=== PATIENT | male | born 1995 | race Caucasian/White ===

== ENCOUNTER 2016-04-07 22:50 | Emergency (ER) | payer OTHER ==
[~2016-04-07] VITALS: Ht 175.3 cm; Wt 92.0 kg
[2016-04-07 22:59] VITALS: TEMP 37.5; Ht 175.3 cm; Wt 92.0 kg
[2016-04-07] MEDS ORDERED: PROPARACAINE HCL 0.5% OP SOLN 15 ML BTL OP STA (23:48)
[2016-04-08] MEDS ORDERED: NORCO 5/325MG HOME PACK PO ONE
[2016-04-08] MEDS ORDERED: CEPHALEXIN 500MG HOME PACK 1 EA BTL PO ONE
[2016-04-08] MEDS ORDERED: SEPTRA DS HOME PACK 1 EA VIAL PO ONE
[2016-04-08] MEDS ORDERED: SULF800T23 PO (00:51)
[2016-04-08] MEDS ORDERED: HYDR-5688 PO (00:51)
[2016-04-08] MEDS ORDERED: CEPH500C PO (00:51)
--- NOTE | 2016-04-08 00:53 | EMERGENCY ROOM VISIT NOTE ---
ED Visit Note First contact with patient: 23:17 Chief Complaint: Pilonidal Cyst History of Present Illness: Patient is a 20-year-old male who presents to the emergency department today for a possible pilonidal cyst. He reports a history of the same back in January. He had a surgery performed in [place] to remove the cyst. He had been doing well until yesterday he noticed some pain and irritation to the upper portion of his buttocks. He denies any discharge or drainage. He reports no fevers or chills. He denies any history of Crohn's disease or ulcerative colitis. The patient rates his current discomfort as a 2/ 10. He denies any fevers, chills, nausea, vomiting, diarrhea, hematochezia, melena, hematuria, or dysuria. Medications: No current medications. Allergies: No known allergies. PMH: As above. SHx: Patient is a 20-year-old male who lives locally. ROS: All pertinent positive and negative review of systems are appropriately documented in the History of Present Illness. Physical Exam: VITAL SIGNS - Vital signs and nursing notes were reviewed. GENERAL - 20-year-old male appearing male appearing his stated age who is in no acute distress. Communicates well with provider and answers questions appropriately. ABDOMEN - Abdominal contour flat and without pulsations or visible masses. BS normoactive all four quadrants. No tenderness to palpation appreciated throughout. No palpable masses, hepatosplenomegaly, or ascites noted. RECTAL - No rectal fissures. No skin tags appreciate. No active bleeding. Healing residual wound in the upper portion of the gluteal cleft consistent with prior pilonidal drainage. Tender to palpation. No erythema or warmth to touch. No discharge or drainage noted. PSYCH - A&Ox3 and cooperates fully with examiner. Pt is very pleasant and interacts well with examiner. ED Course: Patient was seen and evaluated by myself. I had a lengthy discussion with the patient regarding his symptoms and management at this point. There is no active drainage or drainable abscess appreciated at this point. Patient will be placed on antibiotics to prevent the development of abscess. He is provided pain medication for home. He was instructed to follow-up with his surgeon from today's visit. He was educated on worrisome symptoms for return visit to the emergency department. Patient discharged home in good condition. In the evaluation and treatment of this patient, the following differential diagnoses were considered: Pilonidal abscess, pilonidal sialitis, pararectal abscess, fistula, amongst others. Impression: Pilonidal Cellulitis Discharge Instructions: You have been seen in the emergency department for a pilonidal cellulitis. You have been prescribed Crozier to be used for pain control. This is a narcotic medication. You cannot drive or consume alcohol while on this medicine. This medicine should only be used for pain that cannot be controlled with over-the- counter pain medicines. You were prescribed Keflex and Bactrim to be taken as prescribed. Both of these medications are antibiotics. Stop these medications and contact a medical provider if you were to develop any significant adverse side effects including: wheezing, shortness of breath, passing out, vomiting, or a diffuse rash. Always take antibiotics as directed and COMPLETE the ENTIRE course regardless of the improvement of your symptoms. Look for signs of infection of the wound including: increased pain, swelling, foul discharge, streaking, or increased temperature. If any of these are noticed you should return to the Emergency Department for further assessment and treatment. As with any laceration you may have received nerve damage to the surrounding tissues. This damage may or may not be permanent. For pain control, you can use the following juuy-dro-grsukee medicines (if >12 yo): - Regular strength (325mg/tab) Tylenol (acetaminophen) 2 tabs every 4-6 hours as needed. Do not exceed 12 tablets in a 24 hour period. Avoid taking more than 4 grams (4000 mg) of Tylenol per day. This includes any other sources of acetaminophen you may take on a regular basis. - Regular strength (200 mg/tab) Advil (ibuprofen) 1-2 tabs every 4-6 hours as needed. Do not exceed a dose of 3200 mg per day. Return to the emergency department if your symptoms worsen despite treatment course outlined above. Current/Historical Medications Scheduled Cephalexin Monohydrate (Keflex), 500 MG PO TID Sulfa/Trimethoprim (Bactrim Ds 800MG/160MG), 1 TAB PO BID Scheduled PRN Hydrocodone/Acetaminophen 5MG/325MG (Crozier 5MG/325MG), 1-2 TABLET PO Q4H PRN for Pain Allergies Coded Allergies: No Known Allergies (Unverified , 04/07/16) Vital Signs Date Time Temp Pulse Resp B/P Pulse Ox O2 Delivery O2 Flow Rate FiO2 04/08/16 01:05 89 18 116/77 98 04/07/16 22:59 37.5 98 18 137/84 96 Room Air Medications Administered Medications (Trade) Dose Ordered Sig/Jazz Route Start Time Stop Time Status Last Admin Dose Admin Cephalexin Monohydrate (Keflex 500MG Home Pack) 1 homepack NOW ONCE PO 04/08/16 00:00 04/08/16 00:01 DC 04/08/16 00:03 1 HOMEPACK Trimethoprim/ Sulfamethoxazole (Sulfameth/ Trimeth Ds 800/ 160MG Home Pack) 1 homepack UD ONCE PO 04/08/16 00:00 04/08/16 00:01 DC 04/08/16 00:02 1 HOMEPACK Acetaminophen/ Hydrocodone Bitart (Crozier 5/325mg Home Pack) 1 homepack UD ONCE PO 04/08/16 00:00 04/08/16 00:01 DC 04/08/16 00:03 1 HOMEPACK Departure Information Impression Primary Impression: Pilonidal abscess Dispostion Home / Self-Care Condition GOOD Prescriptions Hydrocodone/Acetaminophen 5MG/325MG (Crozier 5MG/325MG) Tab 1-2 TABLET PO Q4H Y for Pain, #20 TAB For Initial Treatment Prov: Juan Pablo Cheema PA-C 04/08/16 Sulfa/Trimethoprim (Bactrim Ds 800MG/160MG) Tab 1 TAB PO BID for 10 Days, #20 TAB Prov: Juan Pablo Cheema PA-C 04/08/16 Cephalexin Monohydrate (Keflex) 500 Mg Cap 500 MG PO TID for 10 Days, #30 CAP Prov: Juan Pablo Cheema PA-C 04/08/16 [facility] (PCP) Julisa Thornton MD Patient Instructions My [facility] Additional Instructions You have been seen in the emergency department for a pilonidal cellulitis. You have been prescribed Crozier to be used for pain control. This is a narcotic medication. You cannot drive or consume alcohol while on this medicine. This medicine should only be used for pain that cannot be controlled with over-the- counter pain medicines. You were prescribed Keflex and Bactrim to be taken as prescribed. Both of these medications are antibiotics. Stop these medications and contact a medical provider if you were to develop any significant adverse side effects including: wheezing, shortness of breath, passing out, vomiting, or a diffuse rash. Always take antibiotics as directed and COMPLETE the ENTIRE course regardless of the improvement of your symptoms. Look for signs of infection of the wound including: increased pain, swelling, foul discharge, streaking, or increased temperature. If any of these are noticed you should return to the Emergency Department for further assessment and treatment. As with any laceration you may have received nerve damage to the surrounding tissues. This damage may or may not be permanent. For pain control, you can use the following lrac-dwz-ibmqccm medicines (if >12 yo): - Regular strength (325mg/tab) Tylenol (acetaminophen) 2 tabs every 4-6 hours as needed. Do not exceed 12 tablets in a 24 hour period. Avoid taking more than 4 grams (4000 mg) of Tylenol per day. This includes any other sources of acetaminophen you may take on a regular basis. - Regular strength (200 mg/tab) Advil (ibuprofen) 1-2 tabs every 4-6 hours as needed. Do not exceed a dose of 3200 mg per day. Return to the emergency department if your symptoms worsen despite treatment course outlined above.
[2016-04-08 01:05] VITALS: BP 116/77; PULSE 89; O2SAT 98
== END 2016-04-08 01:06 | disposition home or self-care (01) ==
LOC: C.EDB 22:52 → C.EDC 04-08 01:06
DX: L05.01 Pilonidal cyst with abscess (principal)

== ENCOUNTER 2017-07-03 02:24 | Emergency (ER) | payer OTHER ==
[~2017-07-03] VITALS: Ht 180.3 cm; Wt 103.2 kg
[2017-07-03 02:31] VITALS: TEMP 36.8; Ht 180.3 cm; Wt 103.2 kg
[2017-07-03] MEDS ORDERED: ALBUT/IPRATROP 3MG/0.5MG NEB 3 ML VIAL INH ONE (03:00)
[2017-07-03] MEDS ORDERED: PRED20TA2 PO (03:39)
[2017-07-03 03:45] VITALS: BP 128/80; PULSE 85; O2SAT 95
--- NOTE | 2017-07-03 06:48 | DIAGNOSTIC IMAGING REPORT ---
CHEST 2 VIEWS ROUTINE CLINICAL HISTORY: Cough. COMPARISON STUDY: No previous studies for comparison. FINDINGS: Lung volumes are at the lower limits of normal. There is no consolidation or evidence for pulmonary edema. Cardiac size is normal. Mediastinal contours are unremarkable. There is no pneumothorax or pleural effusion. IMPRESSION: No acute cardiopulmonary findings. Electronically signed by: Yohan Meraz M.D. 07/03/2017 6:47 AM Dictated Date/Time: 07/03/2017 6:46 AM
--- NOTE | 2017-07-03 07:35 | EMERGENCY ROOM VISIT NOTE ---
History First contact with patient: 02:40 Chief Complaint: RESPIRATORY PROBLEMS Stated Complaint: TROUBLE BREATHING, CONSTANT SNEEZING, ITCHY EYES History of Present Illness The patient is a 22 year old male who presents to the Emergency Room with complaints of coughing, sneezing, and irritation of his eyes. Patient states he was sleeping tonight and had a hard time catching his breath. He has had symptoms like this in the past around this time of year and may be related to seasonal allergies. The patient has not had fever or chills. He does not have distinct chest pain or abdominal pain. No extremity swelling. He has not taken anything faom-ehk-aashzrs for his symptoms. He rates his discomfort a 5/ 10. Review of Systems More than 10 systems were reviewed and otherwise negative with the exception of history of present illness. Past Medical/Surgical History No chronic medical disease Family History No pertinent family history Social History Smoking Status: Never Smoker Occupation Status: [email or web address] student Current/Historical Medications Scheduled Prednisone (Prednisone Tab), 2 TAB PO DAILY Physical Exam Vital Signs Date Time Temp Pulse Resp B/P (MAP) Pulse Ox O2 Delivery O2 Flow Rate FiO2 07/03/17 03:45 85 14 128/80 95 07/03/17 02:50 Room Air 07/03/17 02:31 36.8 80 18 128/83 97 Room Air Physical Exam VITALS: Vitals are noted on the nurse's note and reviewed by myself. Vital signs stable. GENERAL: Well-developed, well-nourished, male, who is in no acute distress and resting comfortably. Patient is cooperative with the examination. HEART: Regular rate and rhythm without murmurs gallops or rubs. LUNGS: Clear to auscultation bilaterally without wheezes, rales or rhonchi. No retractions or accessory muscle use. MUSCULOSKELETAL: No muscle atrophy, erythema, or edema noted. Full range of motion in all extremities. NEURO: Patient was alert and oriented to person place and time. CN II through XII grossly intact. Medical Decision & Procedures ER Provider Diagnostic Interpretation: CHEST 2 VIEWS ROUTINE CLINICAL HISTORY: Cough. COMPARISON STUDY: No previous studies for comparison. FINDINGS: Lung volumes are at the lower limits of normal. There is no consolidation or evidence for pulmonary edema. Cardiac size is normal. Mediastinal contours are unremarkable. There is no pneumothorax or pleural effusion. IMPRESSION: No acute cardiopulmonary findings. Medications Administered Medications (Trade) Dose Ordered Sig/Jazz Route Start Time Stop Time Status Last Admin Dose Admin Prednisone (PredniSONE TAB) 40 mg NOW STAT PO 07/03/17 02:48 07/03/17 02:50 DC 07/03/17 03:02 40 MG Albuterol/ Ipratropium (Duoneb) 3 ml NOW ONCE INH 07/03/17 03:00 07/03/17 03:01 DC 07/03/17 03:02 3 ML ED Course Physical exam and history were performed. Nursing notes, EMR, and Medication List were personally reviewed. Patient appears to have some shortness of breath symptoms bring him to the emergency department today. The patient does not appear toxic on examination. Most of what he is describing appears consistent with allergic symptoms. On examination he appears well and certainly not toxic. Patient was given oral prednisone and a breathing treatment. Chest x-ray was performed and reviewed by myself and radiology without acute findings. On reevaluation the patient felt much better and seems well for discharge home. He will be given a short course of prednisone to assist with his symptoms at home. He is to follow with [facility] in the next few days for recheck. He was otherwise invited back to the ER with any new, worsening, or concerning symptoms. The chart was completed utilizing [employer] Speech Voice Recognition Software. Grammatical errors, random word insertions, pronoun errors, and incomplete sentences are an occasional consequence of this system due to software limitations, ambient noise, and hardware issues. Any formal questions or concerns about the content, text, or information contained within the body of this dictation should be directly addressed to the provider for clarification. . Medical Decision Differential diagnosis: Etiologies such as seasonal allergies, infections, reactive airway disease, pneumonia, pneumothorax, COPD, CHF, cardiac ischemia, pulmonary embolism, musculoskeletal, gastrointestinal, as well as others were entertained. Impression Primary Impression: Shortness of breath Departure Information Dispostion Home / Self-Care Condition GOOD Prescriptions Prednisone (Prednisone Tab) 20 Mg Tab 2 TAB PO DAILY for 5 Days, #10 TAB Prov: Cam Oneal PA-C 07/03/17 Forms HOME CARE DOCUMENTATION FORM, Work Instructions, Additional Instructions: Patient was seen and evaluated today in the emergency department fo medical care. Return to work on 07/05/2017. Please excuse. IMPORTANT VISIT INFORMATION Patient Instructions My [facility] Additional Instructions You were seen and evaluated today on an emergency basis only. This is not a substitute for, or an effort to provide, complete comprehensive medical care. It is not possible to recognize and treat all injuries or illnesses in a single emergency department visit. For this reason it is recommended that you followup with S or your primary care physician with any ongoing or persisting symptoms. Take prednisone 40 mg daily for the next 5 days. You are welcome to return to the emergency department anytime with new, worsening, or concerning symptoms. Work Instructions Additional Work Instructions: Patient was seen and evaluated today in the emergency department for medical care. Return to work on 07/05/2017. Please excuse.
== END 2017-07-03 03:45 | disposition home or self-care (01) ==
LOC: C.EDB 02:25
DX: R06.02 Shortness of breath (principal)